=== PATIENT | male | born 1955 | race African-American/Black ===

== ENCOUNTER 2016-08-30 11:59 | Day surgery (SDC) | payer OTHER ==
[2016-08-30] MEDS ORDERED: NACL 0.9% 1000 ML 1,000 ML IV SCH (13:00)
[2016-08-30] MEDS ORDERED: WATER FOR IRRIG STERILE IR ONE (13:36)
[2016-08-30] MEDS ORDERED: XYLOCAINE MPF 2% ONE (14:00)
[2016-08-30] MEDS ORDERED: DIPRIVAN 10 MG/ML IV ONE ×2 (14:17)
--- NOTE | 2016-08-30 14:31 | Operative Report ---
Operative Report Operative Report: Date of procedure: 08/30/2016 Procedure: Colonoscopy multiple snare polypectomies, hot biopsy polypectomy, submucosal injection of saline. Attending physician: Louis Lundberg MD [employer] Specialist: Louis Lundberg MD Indication: Patient is a 60-year-old male who presents for colorectal cancer screening. Colonoscopy is done to evaluate patient so that treatment may be directed based on the findings. Consent: Informed consent was obtained after advising the patient and family regarding nature of this procedure, its indications, potential benefits as well as possible complications including but not limited to bleeding perforation and adverse reaction to medication, infection as well as other cardiopulmonary complications. An informed written and verbal consent was then obtained after due opportunity was provided for questions and answers. Monitoring: Patient was monitored continuously with pulse oximetry and electrocardiographic recordings as well as blood pressure recordings. Vital signs remained stable throughout this procedure with no untoward events. Preoperative assessment: Patient was assessed immediately prior to this procedure for capacity to tolerate monitored anesthesia care and moderate sedation as well as general anesthesia. Patient's ASA classification is 2, Mallampati class is 2, Hyomental distance is 3. Instrument: Samfindn video colonoscope Medications: Propofol given intravenously in divided doses for details please potential records Description of procedure: Patient was placed in the left lateral decubitus position after achieving sedation, a digital rectal examination was performed following which the colonoscope was introduced into the anal verge and advanced to the cecum which was identified by the cecal valve, the appendiceal orifice, as well as by the cecal strap and direct transillumination. The colonoscope was subsequently withdrawn with careful inspection of all mucosal surfaces. Patient tolerated this procedure well and was subsequently taken to the recovery room. The following findings were noted. Findings: The colon was moderately tortuous. There was thick liquid densely inherent stool seen in various sections of the colon. There were diminutive diverticula seen in various sections of the colon. Patient had a 6 mm sessile polyp in the ascending colon which was removed by snare electrocautery and retrieved. At the hepatic flexure, patient had a broad-based pedunculated 1.5 cm polyp which was removed snare electrocautery. The transverse colon was normal the descending colon showed a few diverticula. In the sigmoid colon, patient had a sessile diminutive 5 mm polyp which was removed hot biopsy polypectomy and retrieved. In the rectum, patient had a 2.5 cm to 3 cm pedunculated polyp with a broad base. This was injected with saline to further elevated it then was removed by snare electrocautery and given the broad base, hemoclips were applied at the base of the polypectomy. There was an adjoining 6 mm polyp which was again removed by snare electrocautery and retrieved. On a retroflexed view at the anal verge patient had internal hemorrhoids. Impression: Rectal polyps status post snare polypectomy and submucosal injection Sigmoid colon polyp status post hot biopsy polypectomy Hepatic flexure polyp status post snare polypectomy Ascending colon polyp status post hot biopsy polypectomy. Mild diverticulosis Internal hemorrhoids Plan: Follow pathology report High-fiber diet Consider repeat colonoscopy within one year for surveillance.
--- NOTE | 2016-08-30 14:32 | Discharge Summary ---
Short Stay Discharge Plan Activity: advance as tolerated Weight Bearing Status: Weight Bear as Tolerated Diet: regular Additional Instructions: Post Sedation D/C Instructions When you return home you may resume your regular diet unless otherwise directed. -Go directly home from the hospital and rest quietly. You may resume normal activities tomorrow. -Do NOT drive, return to work, operate any machinery or make any important personal or business decisions today. -Do NOT drink any alcohol or take nerve or sleeping drugs. They add to the effects of the medicine still present in your body. Follow up with: EMILIANO GAMING MD [Primary Care Provider] - 7 Days
--- NOTE | 2016-08-30 14:39 | Post Anesthesia Evaluation ---
- Post Anesthesia Evaluation Patient Participated: Yes Airway Patent: Yes Stable Respiratory Function: Yes Nausea/Vomiting: No Temp > 96.8F: Yes Pain Manageable: Yes Adequeate Hydration: Yes Anesthesia Complications: No Block Receding Appropriately: Not Applicable Patient on Ventilator: No
[2016-08-30 14:47] VITALS: BP 105/85
--- NOTE | 2016-08-30 15:07 | Anesthesia Day of Surgery ---
Anesthesia Day of Surgery - Day of Surgery Patient Examined: Yes Patient H&P Reviewed: Yes Patient is NPO: Yes
--- NOTE | 2016-08-30 15:08 | Anesthesia Consultation ---
Anesthesia Consult and Med Hx Date of service: 08/30/16 - Airway Anesthetic Teeth Evaluation: Good ROM Head & Neck: Adequate Mental/Hyoid Distance: Adequate Mallampati Class: Class II Intubation Access Assessment: Probably Good - Pulmonary Exam CTA: Yes - Cardiac Exam Cardiac Exam: RRR - Pre-Operative Health Status ASA Pre-Surgery Classification: ASA3 - Pre-Anesthesia Comment Pre-Anesthesia Comments: No previous anesthesia - Pulmonary Hx Smoking: Yes - Cardiovascular System Hx Hypertension: Yes (high cholesterol) - Endocrine Hx Non-Insulin Dependent Diabetes: Yes
== END 2016-08-30 12:00 | disposition home or self-care (01) ==
LOC: GIO 11:59
PROVIDERS: ATTEND Internal Medicine Gastroenterology
DX: Z12.11 Encounter for screening for malignant neoplasm of colon (principal); K63.5 Polyp of colon; K62.1 Rectal polyp; K57.30 Diverticulosis of large intestine without perforation or abscess without bleeding; K64.8 Other hemorrhoids; K63.89 Other specified diseases of intestine; I10 Essential (primary) hypertension; E11.9 Type 2 diabetes mellitus without complications; E78.00 Pure hypercholesterolemia, unspecified; F17.210 Nicotine dependence, cigarettes, uncomplicated; Z79.84 Long term (current) use of oral hypoglycemic drugs; Z79.899 Other long term (current) drug therapy
CPT/HCPCS: 45381; 45384; 45385; 82962; 88305; J2704; J7030